=== PATIENT | female | born 1960 | race Hispanic/Latino ===

== ENCOUNTER 2022-03-27 19:30 | Emergency (ER) | payer OTHER, MEDICARE ==
[~2022-03-27] VITALS: Ht 152.4 cm; Wt 90.7 kg
[2022-03-27 20:24] LABS: BASOPHILS % (AUTO) 0.6 % (0.0-5.0); EOSINOPHILS % (AUTO) 2.6 % (0.0-8.0); HEMATOCRIT 36.8 % (36-48); LYMPHOCYTES % (AUTO) 27.3 % (21.0-51.0); MEAN CORPUSCULAR HGB CONC 35.1 g/dL (32.0-36.0); MEAN CORPUSCULAR VOLUME 85.6 fL (79-99); MONOCYTES % (AUTO) 9.1 % (3.0-13.0); NEUTROPHILS % (AUTO) 60.1 % (40.0-77.0); PLATELET COUNT (AUTO) 84 K/uL (130-400); RED CELL DISTRIBUTION WIDTH 14.6 % (11.0-15.5); WHITE BLOOD COUNT (AUTO) 6.5 K/uL (4.8-10.8)
[2022-03-27 20:25] LABS: APPEARANCE,URINE CLEAR (CLEAR); BILIRUBIN,URINE NEGATIVE (NEGATIVE); COLOR,URINE YELLOW (YELLOW); GLUCOSE, URINE (UA) NEGATIVE (NEGATIVE); KETONES,URINE NEGATIVE (NEGATIVE); LEUKOCYTE ESTERASE ,URINE NEGATIVE (NEGATIVE); NITRATE,URINE NEGATIVE (NEGATIVE); OCCULT BLOOD,URINE NEGATIVE (NEGATIVE); PROTEIN,URINE NEGATIVE (NEGATIVE)
[2022-03-27] MEDS ORDERED: LIDOCAINE HCL 2% VISCOUS 15 ML UDCUP PO ONE (20:30)
[2022-03-27] MEDS ORDERED: MAG/ALUM/SIMETH 30 ML UDCUP PO ONE (20:30)
[2022-03-27] MEDS ORDERED: DICYCLOMINE HCL 10 MG/5 ML ML PO ONE (20:30)
[2022-03-27] MEDS ORDERED: 0.9%NACL 1000ML 1,000 ML IV SCH (20:30)
[2022-03-27] MEDS ORDERED: FAMOTIDINE 20MG VIAL IV ONE (20:30)
[2022-03-27 20:32] LABS: CREATININE 0.5 mg/dL (0.5-1.5); POTASSIUM 3.6 mmol/L (3.5-5.1)
[2022-03-27 20:36] LABS: ALBUMIN 3.3 g/dL (3.5-5.0); TOTAL PROTEIN, SERUM 7.6 g/dL (6.0-8.3)
[2022-03-27] MEDS ORDERED: LEVO500T90 PO (22:12)
[2022-03-27] MEDS ORDERED: METR375C2 PO (22:12)
[2022-03-27 22:14] VITALS: BP 146/74
[2022-03-27] MEDS ORDERED: LEVOFLOXACIN 500 MG TABLET ONE (22:18)
[2022-03-27] MEDS ORDERED: METRONIDAZOLE 500 MG TABLET PO SCH (22:30)
[2022-03-28] MEDS ORDERED: LEVOFLOXACIN 500 MG TABLET PO SCH (09:00)
== END 2022-03-27 22:28 | disposition home or self-care (01) ==
LOC: EDH 19:30
DX: K52.9 Noninfective gastroenteritis and colitis, unspecified (principal); K74.60 Unspecified cirrhosis of liver; Z20.822 Contact with and (suspected) exposure to COVID-19; I10 Essential (primary) hypertension; E66.01 Morbid (severe) obesity due to excess calories; Z68.39 Body mass index [BMI] 39.0-39.9, adult
CPT/HCPCS: 99284; 96374; 76705; 96361; 87635; 80053; 83690; 85025; 87804 ×2; 81003; 36415; C9803; J3490; J7030

== ENCOUNTER 2023-10-17 18:13 | Emergency (ER) | payer OTHER, MEDICARE ==
[~2023-10-17 18:13] MED LIST: LEVO-70 PO; METR375C2 PO
== END 2023-10-17 21:01 | disposition left against medical advice (07) ==
LOC: EDH 18:13
DX: Z00.00 Encounter for general adult medical examination without abnormal findings (principal); Z53.21 Procedure and treatment not carried out due to patient leaving prior to being seen by health care provider